=== PATIENT | male | born 1940 | race Caucasian/White ===

== ENCOUNTER 2021-08-22 14:53 | Emergency (ER) | payer MEDICARE, BC ==
[~2021-08-22] VITALS: Ht 193 cm; Wt 102.1 kg
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
[2021-08-22] MEDS ORDERED: APIX5TAB4 PO (15:17)
[2021-08-22] MEDS ORDERED: LOSA100T31 PO (15:17)
[2021-08-22] MEDS ORDERED: AMLO2.5T4 PO (15:17)
[2021-08-22 16:20] LABS: HEMATOCRIT 41.2 % (36.7-47.1); MEAN CORPUSCULAR HEMOGLOBIN 32.1 uug (23.8-33.4); MEAN CORPUSCULAR VOLUME 94.7 fL (73.0-96.2); PLATELET COUNT (AUTO) 166 K/uL (152-348)
[2021-08-22 16:31] LABS: BILIRUBIN,TOTAL 1.1 mg/dL (0.2-1.0); CREATININE 1.1 mg/dL (0.6-1.3); POTASSIUM 3.8 mmol/L (3.5-5.1); TOTAL PROTEIN, SERUM 7.2 g/dL (6.4-8.2)
--- NOTE | 2021-08-22 17:22 | NUR ---
DC and follow up instructions given to patient who states he understands all instructions including when to call 911
[2021-08-22 17:23] VITALS: BP 156/84
== END 2021-08-22 17:24 | disposition home or self-care (01) ==
LOC: ER 14:55
DX: S29.8XXA Other specified injuries of thorax, initial encounter (principal); R07.81 Pleurodynia; I48.91 Unspecified atrial fibrillation; Z79.01 Long term (current) use of anticoagulants; V18.4XXA Pedal cycle driver injured in noncollision transport accident in traffic accident, initial encounter; Y93.55 Activity, bike riding; Y92.832 Beach as the place of occurrence of the external cause
CPT/HCPCS: 36415; 71101; 85025; 85730; A4663